=== PATIENT | male | born 1930 | race Caucasian/White ===

== ENCOUNTER → 2016-06-18 | Outpatient (CLI) | payer MEDICARE, BC ==
[2016-06-18 14:18] LABS: Blood Urea Nitrogen 18 mg/dL (9-20); Non-African American GFR(MDRD) 54 (>60 ml/min/1.73 sqM)
--- NOTE | 2016-06-18 15:18 | CT ---
EXAMINATION TYPE: CT soft tissue neck w con DATE OF EXAM: 06/18/2016 2:48 PM COMPARISON: Previous study dated 03/01/2016. HISTORY: Patient in for follow up on left posterior lymph node carcinoma CT DLP: 865 mGycm Automated exposure control for dose reduction was used. CONTRAST: CT scan of the neck is performed following with IV Contrast, patient injected with 100 mL of Visipaqu e 320. Axial images are obtained, coronal and sagittal reformatted images are reviewed. FINDINGS: Visualized portions of the lungs are clear. Visualized intracranial structures are normal. The left vertebral artery is dominant. There is mild mucoperiosteal disease involving the maxillary sinuses. There is an 8 mm retention cyst or polyp involving the anterior wall of the right maxillary sinus. There is loss of the normal cervical lordosis. Vertebral body height and alignment are maintained. At lantoaxial relationships are normal. There is degenerative disc disease and hypertrophic spondylosis most marked at C6-7 but also present at C5-6. There is uncovertebral joint disease at this level. The re is facet arthropathy present on the left at C2-3 and C3-4 as well as on the right at C5-6. No defi nite protrusion is demonstrated. The major salivary glands are unremarkable. The parapharyngeal soft tissues are normal. There is asymmetry in the oropharyngeal soft tissues with the right being slightly more prominent than the left. This appears to have worsened slightly from t he previous exam. The laryngeal soft tissues are normal. There is a low attenuating lesion in the left lobe of the thyroid, unchanged from previous. There is a hypervascular structure just anterior to the carotid bulb on the left. This is stable in s ize measuring 12.3 x 17.2 mm. No definite pathologic lymph nodes are seen. IMPRESSION: 1. Slight worsening in the asymmetry in the oropharynx. Direct visualization would be suggested. 2. 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 3. Mild maxillary sinus mucosal disease. 4. Degenerative changes within the spine.
== END ==
LOC: RADCTMAIN 12:51
PROVIDERS: ATTEND Otolaryngology
DX: I99.8 Other disorder of circulatory system (principal); J32.0 Chronic maxillary sinusitis
CPT/HCPCS: 82565; 84520; 70491; 36415; Q9967

== ENCOUNTER → 2017-04-14 | Outpatient (CLI) | payer MEDICARE, BC ==
[2017-04-14 10:48] LABS: Blood Urea Nitrogen 19 mg/dL (9-20)
--- NOTE | 2017-04-14 12:10 | CT ---
EXAMINATION TYPE: CT neck chest w con DATE OF EXAM: 04/14/2017 COMPARISON: 06/18/2016 HISTORY: [place] [facility] [place] CT DLP: 1140 mGycm CONTRAST: CT scan of the neck is performed with IV Contrast, patient injected with 100 mL of Visipaque 320. Contrast enhanced CT of the neck was performed from the skull base through the lung apices. AIRWAY: Prominence of the right sided retropharyngeal soft tissues essentially unchanged from prior e xamination. Direct visualization recommended if this has not been performed previously. The remaining portions of the supraglottic, glottic and subglottic portions of the airway are within normal limits . SALIVARY GLANDS: The submandibular and parotid glands are free of mass or inflammatory process. THYROID GLAND: No nodules or masses seen. LYMPH NODES: No adenopathy seen greater than 1cm. LUNG APICES: No nodule or mass is seen. 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 Vascular structures are patent. Stable degenerative changes of the cervical spine. No abscess seen. IMPRESSION: 1. No pathologic adenopathy greater than 1 cm at this time. 2. 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 3. Stable asymmetry of the oropharyngeal soft tissues. EXAMINATION TYPE: CT neck chest w con DATE OF EXAM: 04/14/2017 COMPARISON: 04/29/2014 HISTORY: [place] [facility] [place] CT DLP: 1140 mGycm Automated exposure control for dose reduction was used. CONTRAST: CT scan of the chest is performed with IV Contrast, patient injected with 100 mL of Visipaque 320. FINDINGS: LUNGS: No concerning pulmonary nodules identified. No evidence for pulmonary mass or volume loss. The re is no pleural effusion or pneumothorax seen. The tracheobronchial tree is patent. MEDIASTINUM: There are no greater than 1 cm hilar or mediastinal lymph nodes. No pericardial effusi on is seen. Thoracic aorta is of normal caliber. The heart is not enlarged. Area of abnormal attenua tion adjacent to the distal esophagus has enlarged and measures 3.0 x 3.1 cm versus 1.8 cm previously . Hounsfield unit density is within the range of fluid being less than 20 Hounsfield units. Persisten t sliding-type hiatal hernia. UPPER ABDOMEN: Stable cystic lesion anterior segment right hepatic lobe. Cholecystectomy clips are in place as well as clips within the upper abdomen.. OTHER: No additional significant abnormality is seen. IMPRESSION: 1. Density adjacent to the distal esophagus has increased in size although demonstrates fluid density at this time. 2. Persistent sliding-type hiatal hernia. 3. Previously noted nodules are less conspicuous at this time.
== END ==
LOC: RADCTMAIN 10:12
PROVIDERS: ATTEND Otolaryngology
DX: Z08 Encounter for follow-up examination after completed treatment for malignant neoplasm (principal); R22.1 Localized swelling, mass and lump, neck; K44.9 Diaphragmatic hernia without obstruction or gangrene; Z85.821 Personal history of Merkel cell carcinoma
CPT/HCPCS: 82565; 84520; 70491; 71260; Q9967

== ENCOUNTER → 2018-08-05 | Outpatient (CLI) | payer MEDICARE, BC ==
--- NOTE | 2018-08-05 08:39 | CT ---
EXAMINATION TYPE: CT neck chest w con DATE OF EXAM: 08/05/2018 COMPARISON: 04/14/2017 HISTORY: Malignant neuroendocrine tumors CT DLP: 1179.6 mGycm CONTRAST: CT scan of the neck is performed with IV Contrast, patient injected with 80 mL of Isovue 300. Contrast enhanced CT of the neck was performed from the skull base through the lung apices. AIRWAY: Prominence of the right sided retropharyngeal soft tissues essentially unchanged from prior examination. Direct visualization recommended if this has not been performed previously. The the remaining supraglottic, glottic, and subglottic portions of the airway appear patent and free of mass. SALIVARY GLANDS: The submandibular and parotid glands are free of mass or inflammatory process. THYROID GLAND: No nodules or masses seen. LYMPH NODES: No adenopathy seen greater than 1cm. LUNG APICES: No nodule or mass is seen. OTHER: Again noted is stable hypervascular mass anterior to the left carotid bulb measuring 1.2 x 1.1 cm versus 1.2 x 1.1 cm previously. Surgical clips are noted bilaterally within the regions of the in ternal jugular chains. IMPRESSION: 1. 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 2. Stable asymmetry of the right-sided the retropharyngeal soft tissues. 3. Changes of prior neck dissection. No definite adenopathy appreciated at this time. EXAMINATION TYPE: CT neck chest w con DATE OF EXAM: 08/05/2018 COMPARISON: 04/14/2017 HISTORY: Malignant neuroendocrine tumors CT DLP: 1179.6 mGycm Automated exposure control for dose reduction was used. CONTRAST: CT scan of the chest is performed with IV Contrast, patient injected with 80 mL of Isovue 300. FINDINGS: LUNGS: The lungs are grossly clear, there is no concerning parenchymal mass or nodule identified. Ri ght upper lobe parenchymal scarring are redemonstrated. There is no pleural effusion or pneumothorax seen. The tracheobronchial tree is patent. MEDIASTINUM: There are no greater than 1 cm hilar or mediastinal lymph nodes. No pericardial effusi on is seen. Thoracic aorta is of normal caliber. The heart is not enlarged. Stable fluid-filled dens ity adjacent to the distal esophagus UPPER ABDOMEN: Stable hepatic cysts. Cholecystectomy clips identified. Right-sided nephrectomy change . OTHER: No additional significant abnormality is seen. IMPRESSION: 1. No distinct pulmonary nodule or mass. 2. Stable fluid-filled density adjacent to the distal esophagus.
== END ==
LOC: RADCTMAIN 06:14
PROVIDERS: ATTEND Otolaryngology
DX: C7A.1 Malignant poorly differentiated neuroendocrine tumors (principal); Z85.89 Personal history of malignant neoplasm of other organs and systems
CPT/HCPCS: 82565; 84520; 70491; 71260; 36415; Q9967